=== PATIENT | female | born 1935 | race Caucasian/White ===

== ENCOUNTER 2023-03-01 13:40 | Inpatient (IN) | payer MEDICARE ==
[~2023-03-01] VITALS: Ht 157.5 cm; Wt 68.0 kg
--- NOTE | 2023-03-01 13:56 | NUR ---
Pt transferred to bed 4b in stable condition. Pt seen by . Safety measures in place. Will continue to monitor.
[2023-03-01] MEDS ORDERED: DIVA125T32 PO (14:03)
[2023-03-01] MEDS ORDERED: QUET25TA36 PO (14:03)
[2023-03-01] MEDS ORDERED: ACET325T53 PO (14:03)
[2023-03-01 14:04] LABS: HEMATOCRIT 37.8 % (31.2-41.9); MEAN CORPUSCULAR VOLUME 91.7 fL (75.5-95.3); PLATELET COUNT (AUTO) 230 K/uL (179-408)
[2023-03-01] MEDS ORDERED: CHOL100045 PO (14:05)
[2023-03-01] MEDS ORDERED: CHOL10005 PO (14:05)
[2023-03-01] MEDS ORDERED: MELA10TA PO (14:05)
[2023-03-01] MEDS ORDERED: VENL50TA4 PO (14:08)
[2023-03-01] MEDS ORDERED: POLY255P19 PO (14:08)
[2023-03-01] MEDS ORDERED: SENN8.6T19 PO (14:08)
[2023-03-01 14:28] LABS: *BILIRUBIN,URIN NEGATIVE (NEGATIVE); *CLARITY,URINE CLEAR (CLEAR); *COLOR,URINE YELLOW (YELLOW); *KETONES,URINE 1+ (NEGATIVE); *UROBILINOGEN,URINE 0.2 E.U./dl (NORMAL); LEUKOCYTE ESTERASE ,URINE 1+ (NEGATIVE); NITRITE, URINE NEGATIVE (NEGATIVE); PH,URINE 8.5 (5.0-8.0); UGLUCOSE NEGATIVE (NEGATIVE)
[2023-03-01 14:45] LABS: *BLOOD, URINE TRACE (NEGATIVE)
[2023-03-01 14:47] LABS: *OCCULT BLOOD STOOL POSITIVE (NEGATIVE)
[2023-03-01] MEDS ORDERED: PANTOPRAZOLE SODIUM 40 MG VIAL IV ONE (15:00)
[2023-03-01] MEDS ORDERED: PANTOPRAZOLE SODIUM 40 MG VIAL ONE (15:01)
[2023-03-01 15:08] LABS: ALANINE AMINOTRANSFERASE 28 U/L (14-59); ALKALINE PHOSPHATASE 94 U/L (50-136); ASPARTATE AMINOTRANSFERASE 15 U/L (15-37); BILIRUBIN,DIRECT 0.1 mg/dL (0.0-0.2); BILIRUBIN,TOTAL 0.6 mg/dL (0.2-1.0); CARBON DIOXIDE 27 mmol/L (21-32); CHLORIDE 103 mmol/L (98-107); CREATININE 0.9 mg/dL (0.6-1.3); GLUCOSE 124 mg/dL (74-106); LIPASE 32 U/L (73-393); POTASSIUM 4.3 mmol/L (3.5-5.1); TOTAL PROTEIN, SERUM 8.1 g/dL (6.4-8.2); UREA NITROGEN, BLOOD 27 mg/dL (7-18)
--- NOTE | 2023-03-01 15:13 | NUR ---
Dr. Bethea spoke with Dr. Staley for report. Safety measures in place. Will continue to monitor.
--- NOTE | 2023-03-01 15:23 | NUR ---
Received Rm 315 from 3rd Floor. Receiving Nurse is Pt currently on lunch. Will call back to give report lázaro. Safety measures in place. Will continue to monitor.
[2023-03-01] MEDS ORDERED: IV NORMAL SALINE 1000 ML BAG IV ONE (15:30)
[2023-03-01] MEDS ORDERED: ACETAMINOPHEN 325 MG TABLET ONE (15:32)
--- NOTE | 2023-03-01 16:09 | NUR ---
report given to SEYMOUR PRESSLEY.
--- NOTE | 2023-03-01 16:11 | NUR ---
PT WILL BE ADMITTED TO TELEMETRY ON RM 315. DR. CALZADA WILL F/U CARE.
--- NOTE | 2023-03-01 16:11 | NUR ---
REPORT RECEIVED FROM JANEY RAY RN.
--- NOTE | 2023-03-01 17:00 | NUR ---
Pt admitted to 3rd floor Tele Rm 315 @ 1650. Pt arrived to bed safely. Slava aware of Pt in Rm 315. Vitals stable at time of transfer. Pt belongings with Pt.
--- NOTE | 2023-03-01 17:01 | NUR ---
pt arrived at the unit. pt aox1-2. confused. sacral and buttocks redness noted. bilateral under breast rashes noted. photo taken and place on the chart.
--- NOTE | 2023-03-01 17:06 | NUR ---
Doctor Neema spoke to cardiology Dr. florez who was oncall for elevated troponin. will plan for troponin trends and will see the patient for consultation
--- NOTE | 2023-03-01 17:20 | NUR ---
MADE AWARE THAT PT ARRIVED AT THE UNIT. NO ADMITTING ORDERS YET.
[2023-03-01 17:28] VITALS: BP 119/66
[2023-03-01] MEDS ORDERED: HYDROCODONE/APAP 5-325MG TABLET PO PRN (17:45)
[2023-03-01] MEDS ORDERED: ACETAMINOPHEN 325 MG TABLET PO PRN (17:45)
[2023-03-01] MEDS ORDERED: DIVALPROEX 125 MG TABLET.DR PO SCH ×2 (17:45→21:00)
[2023-03-01] MEDS ORDERED: REMEDY ESSENTIAL ZINC PASTE 113 GM TP PRN (17:45)
[2023-03-01] MEDS ORDERED: MAGNESIUM HYDROXIDE 30 ML LIQUID UDC PO PRN (17:45)
[2023-03-01] MEDS ORDERED: ONDANSETRON 4 MG/2 ML VIAL IV PRN (17:45)
[2023-03-01] MEDS ORDERED: VENLAFAXINE 25 MG TABLET PO SCH (17:45)
[2023-03-01 20:37] VITALS: BP 112/65
[2023-03-01] MEDS: SENNOSIDES 1 TABLET PO SCH (21:12)
[2023-03-01] MEDS: LACTULOSE 20 G/30 ML LIQUID UDC PO SCH (21:12)
[2023-03-01] MEDS: IV NS 1000 ML 1,000 ML IV PRN (21:32)
--- NOTE | 2023-03-01 22:30 | NUR ---
Received pt in bed. Confused but pleasant. VS WNL. On room air. IV site on R FA 20g intact and patent. NS at 75 cc/hr infusing well. No nausea and vomiting noted. No signs of any pain or discomfort. All needs attended. Left bed on lowest position. Safety precautions maintained.
[2023-03-02 00:06] VITALS: BP 125/69
[2023-03-02] MEDS: LACTULOSE 20 G/30 ML LIQUID UDC PO SCH ×3 (01:13→11:45)
[2023-03-02] MEDS: ZOLPIDEM 5 MG TABLET PO PRN ×2 (01:52→20:24)
[2023-03-02 04:13] VITALS: BP 122/66
[2023-03-02 05:32] LABS: HEMATOCRIT 33.7 % (31.2-41.9); MEAN CORPUSCULAR HEMOGLOBIN 30.2 uug (24.7-32.8); MEAN CORPUSCULAR VOLUME 92.7 fL (75.5-95.3); PLATELET COUNT (AUTO) 196 K/uL (179-408)
[2023-03-02 05:55] LABS: CREATININE 0.9 mg/dL (0.6-1.3); MAGNESIUM 2.2 mg/dL (1.8-2.4); PHOSPHOROUS 4.2 mg/dL (2.5-4.9); POTASSIUM 3.8 mmol/L (3.5-5.1)
[2023-03-02] MEDS: PANTOPRAZOLE SODIUM 40 MG TABLET.DR PO SCH (06:11)
[2023-03-02 06:18] LABS: THYROID STIMULATING HORMONE 2.77 mIU/mL (0.358-3.740)
[2023-03-02] MEDS: MIRALAX 17 GM POWD.PACK PO SCH (08:06)
[2023-03-02] MEDS: QUETIAPINE FUMARATE 25 MG TABLET PO SCH ×2 (08:06→16:29)
[2023-03-02] MEDS ORDERED: DIVALPROEX 125 MG TABLET.DR PO SCH ×3 (09:00→21:00)
[2023-03-02] MEDS ORDERED: VENLAFAXINE 25 MG TABLET PO SCH (09:00)
[2023-03-02] MEDS ORDERED: VENLAFAXINE XR 150 MG CAP.SR.24H PO SCH (09:00)
[2023-03-02] MEDS: IV NS 1000 ML 1,000 ML IV PRN (10:03)
[2023-03-02] MEDS: VENLAFAXINE 25 MG TABLET PO SCH (11:45)
[2023-03-02 12:00] VITALS: BP 112/88
[2023-03-02 13:35] LABS: IRON, SERUM 52 ug/dL (50-175)
--- NOTE | 2023-03-02 14:00 | NUR ---
PT IS RESTING IN HER BED TALKING TO HER SELF REFUSING TO EAT NOTIFIED
[2023-03-02 16:00] VITALS: BP 106/62
--- NOTE | 2023-03-02 17:03 | NUR ---
DC ORDERS RECEIVED NOTED AND CARRIED OUT,DC INSTRUCTION AND EDUCATION GIVEN TO THE PT .DC HEPLOCK PER MD ORDERS,PT LEFT THE FACILITY VIA PRIVATE CAR IN STABLE CONDITION Addendum: 03/02/23 at 1708 by KAYLI PALOMARES LVN WRONG PT CHARTING
--- NOTE | 2023-03-02 17:11 | NUR ---
IN HER BED SLEEPING
[2023-03-02 20:00] VITALS: BP 113/71
[2023-03-02] MEDS: SENNOSIDES 1 TABLET PO SCH (20:23)
[2023-03-03] VITALS: BP 101/70
[2023-03-03] MEDS: IV NS 1000 ML 1,000 ML IV PRN (00:16)
[2023-03-03 04:00] VITALS: BP 124/68
[2023-03-03] MEDS: QUETIAPINE FUMARATE 25 MG TABLET PO SCH (08:40)
[2023-03-03] MEDS: VENLAFAXINE 25 MG TABLET PO SCH (08:41)
[2023-03-03] MEDS: MIRALAX 17 GM POWD.PACK PO SCH (08:42)
[2023-03-03] MEDS: PANTOPRAZOLE SODIUM 40 MG TABLET.DR PO SCH (09:04)
--- NOTE | 2023-03-03 11:00 | NUR ---
PATIENTS SON PEPE HERE AND APPROACHED THE STATION AND STATED THAT THE DOCTOR WAS SUPPOSED TO CALL HIM YESTERDAY STATED THAT HIS MOM IS SUPPOSED TO BE HERE 24 HOURS AND HE IS HERE TO TAKE HIS MOM HOME.TOLD HIM THAT THE DOCTOR DID NOT MAKE ROUNDS YET BUT I WILL CALL HIM TO LET HIM KNOW OF HIS CONCERNS BUT HE STATED TOO LATE HE IS HERE TO TAKE PATIENT HOME AND WILL NO WAIT A SECOND LATER.SO AT THIS TIME I PAGED DR CALZADA AND LEFT HIS A MESSAGE THE [employer] STRETCHER OPERATOR AND THE ARMORED CAR GUARD AND DRIVER WENT IN AND SPOKE WITH THE SON BUT HE IS READY TO TAKE PATIENT AND LEAVE AND WILL NOT WAIT.
[2023-03-03 11:04] VITALS: BP 105/63
--- NOTE | 2023-03-03 11:15 | NUR ---
HE WAS ASKING ME IF I WILL MAKE ARRANGEMENTS FOR TRANSPORTATION FOR HIS MOM BUT I TOLD HIM THE THE LOG YARD DERRICK OPERATOR USUALLY MAKES TRANSPORTATION ARRANGEMENT AND HE AT THIS TIME ATTEMPTED TO CALL THE LTF WHERE PATIENT CAME FROM AND AFTER HE GOT OFF THE PHONE HE STATED THAT HE WILL TAKE HER IN HIS CAR
--- NOTE | 2023-03-03 11:20 | NUR ---
IV BAND REMOVED TELEMETRY REMOVED AND PATIENT ASSISTED ONTO THE W/CHAIR AND WHEELED TO THE SONS CAR AND HE TRANSFERED HIS MOM INTO HIS CAR AND TOOK HER AWAY.
== END 2023-03-03 11:20 | disposition left against medical advice (07) | DRG 377 ==
LOC: ER 13:40 → TELE3 16:14
DX: K92.2 Gastrointestinal hemorrhage, unspecified (principal); I21.A1 Myocardial infarction type 2; G93.40 Encephalopathy, unspecified; F03.90 Unspecified dementia, unspecified severity, without behavioral disturbance, psychotic disturbance, mood disturbance, and anxiety; R79.89 Other specified abnormal findings of blood chemistry; R53.1 Weakness; Z99.3 Dependence on wheelchair; Z53.29 Procedure and treatment not carried out because of patient's decision for other reasons; Z20.822 Contact with and (suspected) exposure to COVID-19; Z79.899 Other long term (current) drug therapy; I44.7 Left bundle-branch block, unspecified; D72.829 Elevated white blood cell count, unspecified; R82.81 Pyuria
CPT/HCPCS: 36415; 71045; 83550; 83690; 83735; 84100; 84443; 84484; 85025; 85730; 93005; A4663; A6209; C1758; C9113; G0378; J7040